=== PATIENT | female | born 1980 | race Caucasian/White ===

== ENCOUNTER 2020-02-02 19:23 | Emergency (ER) | payer OTHER, BC ==
[~2020-02-02] VITALS: Ht 157.4 cm; Wt 65.8 kg
== END 2020-02-02 21:10 | disposition home or self-care (01) ==
LOC: ED 19:23
DX: S60.222A Contusion of left hand, initial encounter (principal); Z88.1 Allergy status to other antibiotic agents; V89.2XXA Person injured in unspecified motor-vehicle accident, traffic, initial encounter; Y93.89 Activity, other specified; Y92.89 Other specified places as the place of occurrence of the external cause; Y99.8 Other external cause status